=== PATIENT | female | born 1955 | race Caucasian/White ===

== ENCOUNTER 2017-09-29 09:52 | Emergency (ER) | payer OTHER ==
[~2017-09-29] VITALS: Ht 162.6 cm; Wt 62.1 kg
[2017-09-29 10:45] LABS: MICROSCOPIC NOT IND
[2017-09-29] MEDS ORDERED: NEBI2.5T2 PO (10:46)
[2017-09-29] MEDS ORDERED: LEVO50TA PO (10:46)
[2017-09-29] MEDS ORDERED: AMLO10TA4 PO (10:46)
[2017-09-29] MEDS ORDERED: HYOS0.375 PO (10:46)
[2017-09-29] MEDS ORDERED: SODIUM CHLORIDE FLUSH 10ML SYR IVF ONE (11:00)
[2017-09-29 11:01] LABS: BASOPHILS # (AUTO) 0.02 x10^3/uL (0-0.1); BASOPHILS % (AUTO) 0 % (0-1); EOSINOPHILS # (AUTO) 0.03 x10^3/uL (0-0.4); EOSINOPHILS % (AUTO) 0 % (1-7); LYMPHOCYTES # (AUTO) 1.33 x10^3/uL (1-3.4); LYMPHOCYTES % (AUTO) 18 % (22-44); MD NO; MEAN CORPUSCULAR HEMOGLOBIN 30.6 pg (27.0-34.8); MEAN CORPUSCULAR HGB CONC 34.1 g/dL (32.4-35.8); MEAN CORPUSCULAR VOLUME 89.7 fL (80-100); MEAN PLATELET VOLUME 7.4 fL (7.4-10.4); MONOCYTES # (AUTO) 0.46 x10^3/uL (0.2-0.8); MONOCYTES % (AUTO) 6 % (2-9); NEUTROPHILS % (AUTO) 75 % (42-75); PLATELET COUNT 378 x10^3/uL (130-400); RED BLOOD COUNT 4.78 x10^6/uL (3.82-5.3); RED CELL DISTRIBUTION WIDTH 12.6 % (9.6-15.2)
[2017-09-29 11:08] LABS: CULTURE INDICATED? NO
[2017-09-29 11:12] LABS: ALBUMIN 4.2 g/dL (3.4-5.0); ANION GAP 5 mmol/L (5-15); CALCIUM 8.7 mg/dL (8.5-10.1); CHLORIDE 108 mmol/L (98-107)
[2017-09-29 11:23] LABS: ALANINE AMINOTRANSFERASE 32 U/L (12-78); ALKALINE PHOSPHATASE 81 U/L (45-117); BILIRUBIN,TOTAL 0.9 mg/dL (0.2-1.0); CREATININE 0.78 mg/dL (0.55-1.02); TOTAL PROTEIN 7.8 g/dL (6.4-8.2)
[2017-09-29] MEDS ORDERED: KETOROLAC 30 MG/1 ML ONE (11:50)
[2017-09-29] MEDS ORDERED: KETOROLAC 30 MG/1 ML IVPush ONE (12:00)
[2017-09-29] MEDS ORDERED: OMNIPAQUE 350 MG/ML, 100ML BOTTLE ONE (12:12)
[2017-09-29 13:18] VITALS: BP 150/68
== END 2017-09-29 14:27 | disposition home or self-care (01) ==
LOC: ED 13:05
DX: R10.32 Left lower quadrant pain (principal); R10.31 Right lower quadrant pain; R10.30 Lower abdominal pain, unspecified; I10 Essential (primary) hypertension; Z88.1 Allergy status to other antibiotic agents; Z88.0 Allergy status to penicillin; Z88.8 Allergy status to other drugs, medicaments and biological substances; Z90.49 Acquired absence of other specified parts of digestive tract; Z90.710 Acquired absence of both cervix and uterus
CPT/HCPCS: 36415; 74177; 80053; 81003; 83690; 84439; 84443; 85025; 96374; 99285; J1885; Q9967